=== PATIENT | male | born 1995 | race Caucasian/White ===

== ENCOUNTER 2017-08-22 11:32 | Day surgery (SDC) | payer BC ==
--- NOTE | 2017-08-21 20:25 | HP ---
HISTORY AND PHYSICAL: DATE OF SURGERY: 08/22/17 SURGEON: Maia Orta MD.* (DICTATED BY JOS EMARTIN RICHARDS) PROCEDURE: Right knee arthroscopy with partial medial meniscectomy, possible chondroplasty, possible synovectomy. CHIEF COMPLAINT: Right knee pain. HISTORY OF PRESENT ILLNESS: Mr. Pulido is a 22-year-old gentleman with continued complaints of severe right knee pain involving the posteromedial aspect of the knee associated with catching and locking symptoms. He has failed conservative management and elected to proceed with surgery which is scheduled for 08/22/17. PAST MEDICAL HISTORY: Denies. PAST SURGICAL HISTORY: Left wrist surgery. CURRENT MEDICATIONS: None. ALLERGIES: To PENICILLIN. FAMILY HISTORY: Diabetes, hypertension, Hodgkin's lymphoma. SOCIAL HISTORY: He is a 22-year-old gentleman, lives with his sister. He does not smoke or use drugs. Uses occasional alcohol. REVIEW OF SYSTEMS: A complete 14-point review of systems is reviewed with the patient, was all negative or noncontributory. PHYSICAL EXAMINATION GENERAL: He is well developed, well nourished, in no acute distress. VITAL SIGNS: He stands 6 feet 2 inches tall, weighs 257 pounds. His blood pressure is 118/80 and his heart rate is 64. HEENT: Normocephalic, atraumatic. NECK: Supple. No palpable lymph nodes. PULMONARY: Lungs are clear to auscultation bilaterally. CARDIO: Regular rate and rhythm. Strong S1 and S2. ABDOMEN: Soft, nontender, nondistended. NEUROLOGIC: He is alert and oriented x3. Cranial nerves II through XII are intact. MUSCULOSKELETAL: Right lower extremity, the skin is intact. There is no open wounds or abrasions. He has a moderate joint effusion of the right knee, some tenderness over the posteromedial joint line. Positive Patrick's, positive Apley's. 5 to 125 degrees range of motion. 2+ dorsalis pedis pulses and intact sensation and his lower extremity muscle group strengths are intact at 5/ 5. ASSESSMENT AND PLAN: Mr. Pulido is a 22-year-old gentleman with complaints of severe right knee pain secondary to a medial meniscus tear which an MRI confirms. He has elected to proceed with a right knee arthroscopy with partial medial meniscectomy, possible chondroplasty, possible synovectomy. The surgery is scheduled for 08/22/[address] Orta discussed the risks and benefits of the surgery at today's visit and all of his questions were answered. He will follow up with Dr. Orta 10 to 14 days after the surgery. JOSE MARTIN RICHARDS [id number]/[facility] #: [id number] JOSE
[2017-08-22] MEDS ORDERED: Clindamycin 900 MG IVPREMIX(* 900 MG/50 ML SDV IV ONE (11:44)
[2017-08-22] MEDS ORDERED: Buffered Lidocaine 0.9% SYRIN* 5 ML/SYR SYRINGE ONE (11:45)
[2017-08-22] MEDS ORDERED: Midazolam* 1 MG/ML 2 ML VIAL (2 MG) ONE (11:54)
[2017-08-22] MEDS ORDERED: fentaNYL* 50 MCG/ML 2 ML VIAL (100 MCG VIAL) ONE ×3 (11:54→15:20)
[2017-08-22] MEDS ORDERED: EPINEPHRINE 1 MG/ML 1 ML VIAL ONE (13:01)
[2017-08-22] MEDS ORDERED: methylPREDNISolone ACETATE 80* 80 MG/ML 1 ML VIAL ONE (13:01)
[2017-08-22] MEDS ORDERED: Bupivacaine 0.5% SDV PF* 10-30ML VIAL ONE (13:02)
[2017-08-22] MEDS ORDERED: Dexamethasone IV* 4 MG/ML 1 ML (4 MG) ONE (14:26)
[2017-08-22] MEDS ORDERED: Propofol* 10 MG/ML 20 ML BTL IV PUSH ONE (14:26)
[2017-08-22] MEDS ORDERED: Lidocaine 2% PF * 5 ML VIAL ONE (14:26)
[2017-08-22] MEDS ORDERED: Ondansetron INJ* 2 MG/ML VIAL ONE (14:26)
[2017-08-22] MEDS ORDERED: Acetaminophen TAB* 325 MG PO PRN (14:40)
[2017-08-22] MEDS ORDERED: Naloxone* 0.4 MG/ML 1 ML VIAL IV PRN (14:40)
[2017-08-22] MEDS ORDERED: fentaNYL* 50 MCG/ML 2 ML VIAL (100 MCG VIAL) IV PRN (14:40)
[2017-08-22] MEDS ORDERED: Metoclopramide IV* 5 MG/ML 2 ML VIAL IV PRN (14:40)
[2017-08-22] MEDS ORDERED: Ketorolac INJ* 30 MG/ML 1 ML VIAL ONE (14:40)
[2017-08-22] MEDS ORDERED: HYDROcodone/ACETAMIN 5-325 MG* 1 TAB PO PRN (14:40)
[2017-08-22] MEDS ORDERED: PROCHLORPERAZINE INJ 5 MG/ML 2 ML VIAL IV PRN (14:40)
[2017-08-22] MEDS ORDERED: HYDROmorphone INJ* 1 MG/ML CARPUJECT SYRINGE IV PRN (14:40)
[2017-08-22] MEDS ORDERED: HYDROmorphone INJ* 2 MG/ML CARPUJECT SYRINGE ONE (15:20)
[2017-08-22] MEDS ORDERED: HYDROcodone/ACETAMIN 5-325 MG* 1 TAB ONE (15:20)
[2017-08-22 15:55] VITALS: BP 148/72
--- NOTE | 2017-08-24 11:36 | OP ---
DATE OF OPERATION: 08/22/17 - [facility] DATE OF : 89 ATTENDING SURGEON: Maia Orta MD COTTON BROKER: JOSE MARTIN Pinzon. Mr. Gonsalves did help throughout the procedure with preparation of the leg, wound retraction, manipulation of the knee, and wound closure. ANESTHESIOLOGIST: Dr. Collado. ANESTHESIA: General. PRE-OP DIAGNOSIS: Right knee pain with medial meniscal tear, radial site. POST-OP DIAGNOSES: Right knee radial medial meniscal tear, patellar cartilage defect. OPERATIVE PROCEDURE: Right knee arthroscopy with partial medial meniscectomy and patellofemoral chondroplasty. ESTIMATED BLOOD LOSS: Less than 25 cc. SPECIMEN: None. COMPLICATIONS: None. BRIEF HISTORY/INDICATION: Mr. Pulido is a 22-year-old gentleman with several years of increasingly severe right knee pain. This is centered mainly around the medial parapatellar region significant mechanical symptoms. Conservative treatments failed to relieve his pain. MRI confirmed a posterior meniscus tear. Due to continued pain and decreased quality of life, the patient elected to undergo a right knee arthroscopy with partial medial meniscectomy, possible chondroplasty, possible synovectomy. Informed consent was obtained from the patient. He understood the risks of surgery included but were not limited to bleeding, infection, damage to nearby structures, continued pain, need for further surgery, re-tear of the meniscus, progression of arthritis, stroke, heart attack, blood clot, and . He wished to proceed. INTRAOPERATIVE FINDINGS: Intraoperatively, the patient was noted to have a radial tear in the white-red zone of the posterior medial meniscus. He also was found to have an osteochondral or cartilage defect along the inferomedial patellar facet. This was a grade 3 or 4 [place] cartilage damage with probing to subchondral bone and cartilage fraying. DESCRIPTION OF PROCEDURE: Mr. Pulido was identified in the preanesthesia unit. His right lower extremity was marked as the correct operative site. Informed consent was signed and placed in the chart. He was taken to the operating room and placed under general anesthesia without difficulty. Right lower extremity was prepped and draped in the usual sterile fashion. Preop time-out was made to correctly identify the patient, side and site. Appropriate perioperative antibiotics were given within 1 hour of incision. A 1.5 cm anterolateral portal incision was made with a 10-blade and carried down to the capsule. Trocar was introduced. As soon as the light and water sources were turned on, there was immediate visualization of the suprapatellar pouch. A tour of the knee joint was performed. Suprapatellar pouch showed no obvious abnormalities. Patellofemoral compartment showed an osteochondral defect or cartilage tear along the inferior portion of the medial facet. Medial gutters showed no loose body or significant plica. Medial compartment showed an obvious tear in the posteromedial meniscus. No significant degenerative changes of the medial compartment cartilage. ACL and PCL appeared to be intact. The knee was placed in a [id number] position. There was no significant degeneration of the lateral cartilage and no obvious lateral meniscal tear. Lateral gutters showed no loose body or plica. Under direct visualization, a medial portal incision was made. Shaver and radiofrequency ablation wand were used to excise some inflammatory tissue from the anterior joint line. A probe was used to evaluate the posteromedial meniscus tear. This was a radial-type tear that involved the white-red zone in the posterior medial meniscus. Straight biter and shaver were used to excise the meniscal tear. A smooth border of the meniscus was obtained. Radiofrequency ablation wand was used to further smooth this. Next, attention was turned to the patellar chondral defect. Radiofrequency ablation wand was used to smooth the frayed edge of the cartilage. This was done in a conservative fashion. Probing to subchondral bone was performed. This was not . The knee was copiously irrigated with sterile saline. All instruments were removed. Incisions were closed using interrupted 3-0 nylon suture. Intra- articular injection of 80 mg Depo-Medrol and 6 cc of 0.25% Marcaine was placed in the knee joint. The patient had incisions dressed with Xeroform, 4x4's, Webril, and Cornelius wrap. Cold pack was placed over this. His anesthesia was reversed without difficulty. He was taken to the PACU in stable condition. Intended weight-bearing will be weightbearing as tolerated. Intended DVT prophylaxis will be Coumadin with a Lovenox bridge. [id number]/[facility] #: [id number] JOSE
== END 2017-08-22 16:12 | disposition home or self-care (01) ==
LOC: OR 11:32
PROVIDERS: ATTEND Orthopaedic Surgery Adult Reconstructive Orthopaedic Surgery
DX: M23.203 Derangement of unspecified medial meniscus due to old tear or injury, right knee (principal); M23.91 Unspecified internal derangement of right knee
CPT/HCPCS: J1040; J1100; J1170; J1885; J2250; J2405; J2704; J3010